=== PATIENT | male | born 1990 | race African-American/Black ===

== ENCOUNTER 2020-02-05 18:05 | Emergency (ER) | payer MEDICAID ==
[~2020-02-05] VITALS: Ht 170.2 cm; Wt 77.2 kg
[2020-02-05 18:27] VITALS: BP 145/81
== END 2020-02-05 19:45 | disposition left against medical advice (07) ==
LOC: ER 18:05
DX: Z53.21 Procedure and treatment not carried out due to patient leaving prior to being seen by health care provider (principal)

== ENCOUNTER 2020-06-28 09:16 | Emergency (ER) | payer MEDICAID ==
[~2020-06-28] VITALS: Ht 177.8 cm; Wt 75.0 kg
[2020-06-28] MEDS ORDERED: CLINDAMYCIN 900 MG in DEXTROSE 5% WATER 50 ML IV STA (09:47)
[2020-06-28] MEDS ORDERED: HYDROCODONE/ACETAMINOPHEN 5/325MG TABLET PO STA (09:47)
[2020-06-28] MEDS ORDERED: DEXAMETHASONE 10 MG/ML VIAL IV STA (09:47)
[2020-06-28] MEDS ORDERED: KETOROLAC 30MG/ML VIAL IV STA (09:47)
[2020-06-28] MEDS ORDERED: CLINDAMYCIN 900 MG PREMIX 50 ML IV SCH (11:15)
[2020-06-28 13:00] VITALS: BP 130/81
== END 2020-06-28 13:00 | disposition home or self-care (01) ==
LOC: ER 09:16
DX: J36 Peritonsillar abscess (principal); F12.10 Cannabis abuse, uncomplicated
CPT/HCPCS: 70490; 96365; 96375; 99284; J1100; J1885; J3490; J7060

== ENCOUNTER 2021-12-06 16:23 | Emergency (ER) | payer MEDICAID ==
[~2021-12-06] VITALS: Ht 167.6 cm; Wt 81.0 kg
[2021-12-06 16:42] VITALS: BP 128/85
[2021-12-06] MEDS ORDERED: FLUORESCEIN SODIUM 1MG/STRIP RIGHTEYE ONE (17:45)
[2021-12-06] MEDS ORDERED: TETRACAINE 0.5% OPHTH DROPS 4ML RIGHTEYE ONE (17:45)
[2021-12-06] MEDS ORDERED: POLY10DR RIGHTEYE (18:11)
== END 2021-12-06 18:28 | disposition home or self-care (01) ==
LOC: ER 16:23
DX: H10.021 Other mucopurulent conjunctivitis, right eye (principal); F12.10 Cannabis abuse, uncomplicated
CPT/HCPCS: 99283